=== PATIENT | female | born 1950 ===

== ENCOUNTER 2021-06-06 13:55 | Emergency (ER) | payer MEDICARE, BC, OTHER ==
[~2021-06-06] VITALS: Ht 172.7 cm; Wt 69.3 kg
[2021-06-06 18:01] LABS: BASO % 0.3 % (0.0-1.0); EOS % 0.6 % (0.0-3.0); HEMATOCRIT 47.6 % (36.0-47.0); HEMOGLOBIN 15.5 g/dl (12.0-15.5); LYMPH # 0.9 10^3/uL (1.5-5.0); LYMPH % 27.6 % (24.0-44.0); MEAN CORPUSCULAR HEMOGLOBIN 29.4 pg (27.0-33.0); MEAN CORPUSCULAR HGB CONC 32.6 g/dl (32.0-36.5); MEAN CORPUSCULAR VOLUME 90.2 fl (80.0-96.0); MONO # 0.8 10^3/uL (0.0-0.8); MONO % 23.2 % (2.0-8.0); NEUTROPHILS # 1.6 10^3/uL (1.5-8.5); PLATELET COUNT, AUTOMATED 151 10^3/uL (150-450); RED BLOOD COUNT 5.28 10^6/uL (4.00-5.40); WHITE BLOOD COUNT 3.2 10^3/uL (4.0-10.0)
[2021-06-06 18:58] LABS: ALBUMIN 4.1 GM/DL (3.2-5.2); ALT/SGPT 65 U/L (12-78); BILIRUBIN,DIRECT 0.2 MG/DL (0.0-0.2); BILIRUBIN,TOTAL 0.5 MG/DL (0.2-1.0); BLOOD UREA NITROGEN 6 MG/DL (7-18); CALCIUM LEVEL 8.9 MG/DL (8.8-10.2); CARBON DIOXIDE LEVEL 30 MEQ/L (21-32); CHLORIDE LEVEL 105 MEQ/L (98-107); CK-MB VALUE MASS < 1.0 NG/ML (<3.6); CPK CREATINE PHOSPHOKINASE 66 U/L (26-192); CREATININE FOR GFR 0.57 MG/DL (0.55-1.30); GLOMERULAR FILTRATION RATE > 60.0 (>45); GLUCOSE, FASTING 88 MG/DL (70-100); LIPASE 129 U/L (73-393); MB/CK RELATIVE INDEX 1.52 (< OR =4); NT-PRO BNP 59 PG/ML (<125); POTASSIUM SERUM 3.5 MEQ/L (3.5-5.1); SODIUM LEVEL 141 MEQ/L (136-145); THYROID STIMULATING HORMONE 0.677 uIU/ML (0.358-3.740); TROPONIN I < 0.02 NG/ML (< 0.10)
[2021-06-06] MEDS ORDERED: methylPREDNISolone 125MG 2ML VIAL IV ONE (20:10)
[2021-06-06] MEDS ORDERED: ALBUTEROL 90 MCG/ACT 8GM HFA INHALER INH PRN (20:10)
[2021-06-06] MEDS ORDERED: NS 1,000 ML IV SCH (20:10)
[2021-06-06] MEDS ORDERED: ALBUTEROL SULFATE 2.5 MG/0.5 ML INH NEB SOLN INH PRN (20:10)
[2021-06-06] MEDS ORDERED: diphenhydrAMINE 50MG/ML VIAL (J1200) IV PRN (20:10)
[2021-06-06] MEDS ORDERED: methylPREDNISolone 125MG 2ML VIAL IV PRN (20:10)
[2021-06-06] MEDS ORDERED: CASIRIVIMAB/IMDEVIMAB 1,200 MG in NS 250 ML IV ONE (20:10)
[2021-06-06] MEDS ORDERED: EPINEPHrine INJ 1 MG/ML 1ML AMP IM PRN (20:10)
[2021-06-06 21:28] VITALS: BP 147/64
== END 2021-06-06 21:32 | disposition home or self-care (01) ==
LOC: M ED 13:55
DX: U07.1 COVID-19 (principal); E11.9 Type 2 diabetes mellitus without complications; K21.9 Gastro-esophageal reflux disease without esophagitis; K22.70 Barrett's esophagus without dysplasia; K90.0 Celiac disease

== ENCOUNTER 2021-06-06 21:35 | Outpatient (CLI) | payer MEDICARE, BC, OTHER ==
[~2021-06-06] VITALS: Ht 175.3 cm; Wt 70.2 kg
[2021-06-06 21:30] VITALS: BP 141/72
[~2021-06-06 21:35] MED LIST: ALBUTEROL 90 MCG/ACT 8GM HFA INHALER INH PRN; ALBUTEROL SULFATE 2.5 MG/0.5 ML INH NEB SOLN INH PRN; EPINEPHrine INJ 1 MG/ML 1ML AMP IM PRN; NS 1,000 ML IV SCH; diphenhydrAMINE 50MG/ML VIAL (J1200) IV PRN; methylPREDNISolone 125MG 2ML VIAL IV PRN
[2021-06-06] MEDS ORDERED: methylPREDNISolone 40MG 1ML VIAL IV ONE (21:45)
[2021-06-06] MEDS: ACETAMINOPHEN TAB 650MG DOSE (2X325MG) PO PRN ×2 (21:56→22:42)
[2021-06-06] MEDS ORDERED: CASIRIVIMAB/IMDEVIMAB 1,200 MG in NS 250 ML IV ONE (22:15)
[2021-06-06 22:55] VITALS: BP 145/71
[2021-06-06 23:18] VITALS: BP 136/70
[2021-06-07 00:05] VITALS: BP 145/79
[2021-06-07 01:00] VITALS: BP 138/74
== END 2021-06-07 01:05 | disposition home or self-care (01) ==
LOC: M OPCLIICU 21:35 → M 4MAIN 21:36 → M OPCLIICU 06-07 01:05
PROVIDERS: ATTEND Internal Medicine
DX: U07.1 COVID-19 (principal)
CPT/HCPCS: 96375; J2920; M0243